=== PATIENT | female | born 1985 | race Caucasian/White ===

== ENCOUNTER 2022-07-01 05:23 | Emergency (ER) | payer SELFPAY ==
[2022-07-01 05:23] VITALS: BP 114/82; PULSE 69; RESP 17; TEMP 36.5; O2SAT 98
--- NOTE | 2022-07-01 05:49 | PC.NURSE ---
Meds called and voice mail left at [phone]
--- NOTE | 2022-07-01 05:51 | PC.NURSE ---
call for help voice mail left. size small.
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
--- NOTE | 2022-07-01 06:45 | PC.NURSE ---
WILIAM lucio @ 0645 - pt refusing all exams, verbalized just wanting help not getting and a place to stay. aware, WILIAM VALERO aware.
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
--- NOTE | 2022-07-01 07:07 | PC.NURSE ---
This rn assumed care of pt at 0624. Pt resting comfortably on stretcher, no current needs.
[2022-07-01 07:12] VITALS: BP 114/82; PULSE 69; RESP 17; TEMP 36.5; O2SAT 98
--- NOTE | 2022-07-01 07:56 | PC.NURSE ---
[facility] contacted at this time to assist with group home placement.
--- NOTE | 2022-07-01 08:50 | PC.NURSE ---
breakfast tray ordered at this time.
--- NOTE | 2022-07-01 09:06 | PCCCNOTE ---
Checked on finding an available homeless nursing home. I attempted multiple calls to area shelters in both [facility] and [facility] and I was unable to find any available nursing home. I let both the pt and charge nurse know.
[2022-07-01] MEDS: levonorgestreL 1.5 MG TABLET PO (09:54)
[2022-07-01] MEDS: metroNIDAZOLE 250 MG TABLET 2000 MG PO (09:55)
[2022-07-01] MEDS: DOXYCYCLINE HYCLATE 100 MG TABLET PO (09:55)
--- NOTE | 2022-07-01 09:55 | PC.NURSE ---
Pt refusing IM injection, erp aware. Pt requesting to be shown each individual packaging for Medications. This RN complied.
[2022-07-01 11:01] VITALS: BP 120/78; PULSE 62; RESP 16; O2SAT 97
== END 2022-07-01 11:04 | disposition home or self-care (01) ==
PROVIDERS: Emergency Provider Emergency Medicine
DX: T74.21XA Adult sexual abuse, confirmed, initial encounter (principal); Y07.50 Unspecified non-family member, perpetrator of maltreatment and neglect
CPT/HCPCS: 99284; A9270